=== PATIENT | female | born 2000 | race Caucasian/White ===

== ENCOUNTER 2025-06-10 11:22 | Outpatient (REF) | payer MEDICAID, SELFPAY ==
[2025-06-10 13:28] LABS: Alanine Aminotransferase 24 U/L (0-31); Albumin Level 3.9 g/dL (3.5-5.0); Alkaline Phosphatase 58 U/L (39-117); Anion Gap 12 (12-20); Aspartate Amino Transferase 27 U/L (5-31); Blood Urea Nitrogen 5 mg/dL (9-16); Calcium 9.3 mg/dL (8.4-10.2); Carbon Dioxide 25 mmol/L (22-29); Chloride 104 mmol/L (96-108); Cholesterol 223 mg/dL (<200); Estimated Glomerular Filt Rate > 60; HDL Cholesterol 55 mg/dL (>40); Potassium 3.5 mmol/L (3.3-5.1); Sodium 137 mmol/L (135-145); Total Protein 7.3 g/dL (6.5-8.0); Triglycerides 130 mg/dL (<150)
[2025-06-10 14:29] LABS: CT PCR Urine NOT DETECTED (Not Detect.); NG PCR Urine NOT DETECTED (Not Detect.)
[2025-06-11 08:18] LABS: Syphilis Screen Nonreactive (Nonreactive)
[2025-06-11 08:44] LABS: HIV Num 1 0.05 S/CO (0.00-0.99); ~HepC Num1 0.08 S/CO (0.00-0.79); ~Hepatitis C Antibody Nonreactive (Nonreactive)
== END 2025-06-10 11:23 | disposition home or self-care (01) ==
LOC: HO.HHCL 11:22
PROVIDERS: PCP Family Medicine; Visit Provider Family Medicine
DX: O21.9 Vomiting of pregnancy, unspecified (principal); Z13.220 Encounter for screening for lipoid disorders; Z20.2 Contact with and (suspected) exposure to infections with a predominantly sexual mode of transmission; Z11.59 Encounter for screening for other viral diseases; Z11.4 Encounter for screening for human immunodeficiency virus [HIV]
CPT/HCPCS: 80048; 80061; 80076; 86780; 86803; 87389; 87491; 87591